=== PATIENT | female | born 1940 | race Caucasian/White ===

== ENCOUNTER 2017-10-13 16:08 | Emergency (ER) | payer OTHER ==
[2017-10-13 16:24] VITALS: BP 160/60; PULSE 56; TEMP 98.2; BMI 25.7
--- NOTE | 2017-10-13 16:43 | PDOC ---
History of Present Illness - General History Source: Patient, Old Records Exam Limitations: No Limitations - History of Present Illness Initial Comments: 10/13/17 16:57 The patient is a 77 year old female with a past medical history of hypertension and hyperlipidemia who presents to the ED with left ankle and foot pain for 3 hours. The patient states that she was walking around her bed when she tripped on the sheets and fell. She denies any loss of consciousness or hitting her head during the fall. The patient describes her ankle pain as constant associated with numbness and tingling. She notes that her pain is exacerbated by movement with no alleviating symptoms. The patient notes that she stopped taking her blood thinning medication 2 weeks ago on her primary doctors recommendation. She states that she was on plavix after her carotid artery surgery in May of 2017. She denies fever, chills, headache, shortness of breath, and dizziness. <John Patel - Last Filed: 10/13/17 17:00> - History of Present Illness Initial Comments: 10/13/17 17:01 Exam: Alert oriented well-developed well-nourished no acute distress cooperative Left ankle: Mild swelling over the anterior and lateral ligaments. No deformity. No point tenderness medial malleolus or fifth metatarsal. Tenderness is present over the lateral malleolus Pulses full. No distal sensory or motor deficits. No instability. No pain or tenderness of the knee, including the proximal fibula X-ray: Comminuted, nondisplaced fracture of the distal fibula. Medial and posterior malleoli intact. Good ankle mortise. Plan: Felton wrap applied. Instructions given. Rest ice and elevate. Orthopedic follow-up as directed. Patient adequately ambulatory with crutches, no significant pain or other distress, discharge with to follow-up as directed. 10/13/17 17:05 10/13/17 17:22 <Nguyễn Mortensen - Last Filed: 10/13/17 17:24> - General Chief Complaint: Injury Stated Complaint: LEFT ANKLE PAIN Time Seen by Provider: 10/13/17 16:32 Past History <John Patel - Last Filed: 10/13/17 17:00> - Past Medical History COPD: No HTN: Yes Hypercholesterolemia: Yes - Suicide/Smoking/Psychosocial Hx Smoking History: Never smoked Hx Alcohol Use: Yes (OCCASIONAL GLASS OF WINE) Drug/Substance Use Hx: No Substance Use Type: None <Nguyễn Mortensen - Last Filed: 10/13/17 17:24> - Past Medical History Allergies/Adverse Reactions: Allergies Allergy/AdvReac Type Severity Reaction Status Date / Time No Known Allergies Allergy Verified 10/13/17 16:10 Home Medications: Ambulatory Orders Amlodipine Besylate [Norvasc -] 5 mg PO DAILY 10/13/17 Aspirin [Aspirin EC] 81 mg PO DAILY 10/13/17 Atorvastatin Ca [Lipitor] 10 mg PO HS 10/13/17 Review of Systems - Review of Systems Able to Perform ROS?: Yes Comments:: 10/13/17 16:57 CONSTITUTIONAL: Absent: fever, no chills, no fatigue EYES: Absent: visual changes ENT: Absent: ear pain, no sore throat CARDIOVASCULAR: Absent: chest pain, no palpitations RESPIRATORY: Absent: cough, no SOB GI: Absent: abdominal pain, no nausea, no vomiting, no constipation, no diarrhea GENITOURINARY: Absent: dysuria, no frequency, no hematuria MUSCULOSKELETAL: (+) Left ankle pain. Left foot pain Absent: back pain, no arthralgia, no myalgia SKIN: Absent: rash 10/13/17 17:00 <John Patel - Last Filed: 10/13/17 17:00> *Physical Exam - Vital Signs Last Vital Signs Temp Pulse Resp BP Pulse Ox 98.2 F 56 L 16 160/60 98 10/13/17 16:09 10/13/17 16:09 10/13/17 16:09 10/13/17 16:09 10/13/17 16:09 - Physical Exam Comments: 10/13/17 16:58 GENERAL: Well-appearing, well-nourished. No apparent distress. HEENT: Normocephalic, atraumatic. PERRL, EOM intact. CARDIOVASCULAR: (+) Systolic ejection murmur. Regular rate and rhythm. PULMONARY: Clear to auscultation bilaterally. ABDOMEN: Soft, non-distended, non-tender. EXTREMITIES: (+) No bony deformity, swelling of left lateral foot, decreased range of motion secondary to pain. Normal ROM in all four extremities. No gross deformities. SKIN: Warm, dry. No rash NEUROLOGICAL: No focal neurological deficits. <John Patel - Last Filed: 10/13/17 17:00> - Vital Signs Last Vital Signs Temp Pulse Resp BP Pulse Ox 98.2 F 56 L 16 160/60 98 10/13/17 16:09 10/13/17 16:09 10/13/17 16:09 10/13/17 16:09 10/13/17 16:09 <Nguyễn Mortensen - Last Filed: 10/13/17 17:24> *DC/Admit/Observation/Transfer - Attestations Scribe Attestion: 10/13/17 16:58 Documentation prepared by John Patel, acting as medical videographer for Nguyễn Mortensen MD. <John Patel - Last Filed: 10/13/17 17:00> - Discharge Dispostion Admit: No <Nguyễn Mortensen - Last Filed: 10/13/17 17:24> Diagnosis at time of Disposition: Fracture of distal fibula Qualifiers: Encounter type: initial encounter Fracture type: closed Fracture morphology: torus Laterality: left Qualified Code(s): S82.822A - Torus fracture of lower end of left fibula, initial encounter for closed fracture - Discharge Dispostion Disposition: HOME Condition at time of disposition: Improved - Referrals Referrals: Juan Allen MD [Staff Physician] - 1 week - Patient Instructions Printed Discharge Instructions: DI for Ankle Fracture Additional Instructions: Rest, ice, elevate, Felton bandage as directed, with loosening periodically. Crutches with partial weight bearing until follow-up with orthopedist. See visual merchandising specialist for further treatment within 1 week. - Post Discharge Activity
== END 2017-10-13 17:30 | disposition home or self-care (01) ==
LOC: FER 16:08
DX: S82.822A Torus fracture of lower end of left fibula, initial encounter for closed fracture (principal); W18.39XA Other fall on same level, initial encounter; Y93.89 Activity, other specified; Y92.003 Bedroom of unspecified non-institutional (private) residence as the place of occurrence of the external cause; I10 Essential (primary) hypertension; E78.5 Hyperlipidemia, unspecified
CPT/HCPCS: 73610-TC-LT-FY; 99281-25

== ENCOUNTER 2019-02-26 12:19 | Emergency (ER) | payer OTHER | END 2019-02-26 13:08 | disposition home or self-care (01) | LOC: FER 12:19 ==

== ENCOUNTER 2021-02-04 17:53 | Emergency (ER) | payer OTHER ==
[2021-02-04 18:06] VITALS: BP 165/64; PULSE 69; TEMP 99.4; BMI 24.4
== END 2021-02-04 18:47 | disposition home or self-care (01) ==
LOC: FER 17:53
PROC: 2W3GX1Z Immobilization of Right Thumb using Splint (ICD-10-PCS; principal; 2021-02-04)
DX: S60.931A Unspecified superficial injury of right thumb, initial encounter (principal)
CPT/HCPCS: 73140-TC-RT-FY; 99283-25

== ENCOUNTER 2021-08-22 19:41 | Emergency (ER) | payer OTHER ==
[2021-08-22 19:56] VITALS: BP 138/49; PULSE 60; TEMP 99; BMI 23.4
== END 2021-08-22 21:48 | disposition home or self-care (01) ==
LOC: FER 19:41
DX: S82.832A Other fracture of upper and lower end of left fibula, initial encounter for closed fracture (principal)
CPT/HCPCS: 73610-TC-LT-FY; 99284-25

== ENCOUNTER → 2022-10-30 | Day surgery (SDC) | payer OTHER ==
[2022-10-28 18:35] VITALS: BMI 23.4
[~2022-10-30] MED LIST: BUPIVACAINE HCL/PF 0.25% (2.5MG/ML) 10 ML VIAL ONE; BUPIVACAINE HCL/PF 0.5% (5MG/ML) 10 ML VIAL IJ ONE; BUPIVACAINE HCL/PF 0.5% (5MG/ML) 10 ML VIAL ONE; IOHEXOL 180 MG/1 ML ML IJ ONE; LIDOCAINE HCL 1% PRESERVATIVE FREE - 30ML VIAL IJ ONE; LIDOCAINE HCL/PF 1% SDV 5ML VIAL ONE; TRIAMCINOLONE ACET 40MG/1ML VIAL IM ONE; TRIAMCINOLONE ACET 40MG/1ML VIAL ONE
[2022-10-30 18:34] VITALS: BP 123/54; PULSE 58; RESP 20; TEMP 97.3
== END | disposition home or self-care (01) ==
LOC: JASU-SURG 04:01
PROVIDERS: ATTEND Pain Medicine Pain Medicine
PROC: 3E0U3BZ Introduction of Anesthetic Agent into Joints, Percutaneous Approach (ICD-10-PCS; 2022-10-30)
PROC: 3E0U33Z Introduction of Anti-inflammatory into Joints, Percutaneous Approach (ICD-10-PCS; principal; 2022-10-30 15:30)
DX: M16.11 Unilateral primary osteoarthritis, right hip (principal)
CPT/HCPCS: 76000-TC-FY

== ENCOUNTER 2023-06-30 13:21 | Emergency (ER) | payer OTHER ==
[2023-06-30 13:28] VITALS: BP 148/58; PULSE 68; RESP 16; TEMP 98.1; BMI 23.8
[2023-06-30] MEDS ORDERED: ACETAMINOPHEN 500 MG TABLET (FP) PO ONE (13:50)
[2023-06-30] MEDS ORDERED: LIDOCAINE 5% TOPICAL PATCH TP ONE (13:51)
[2023-06-30] MEDS ORDERED: ACETAMINOPHEN 325 MG TABLET (FP) ONE (14:11)
[2023-06-30] MEDS ORDERED: LIDOCAINE 5% TOPICAL PATCH ONE (14:11)
[2023-06-30] MEDS ORDERED: KETOROLAC TROMETHAMINE 30 MG/1 ML VIAL IM ONE (15:17)
[2023-06-30] MEDS ORDERED: KETOROLAC TROMETHAMINE 30 MG/1 ML VIAL ONE (15:32)
[2023-06-30] MEDS ORDERED: LIDOCAINE PATCH REMOVAL MC ONE (22:00)
== END 2023-06-30 16:14 | disposition home or self-care (01) ==
LOC: FER 13:21
PROC: 3E0233Z Introduction of Anti-inflammatory into Muscle, Percutaneous Approach (ICD-10-PCS; principal; 2023-06-30)
DX: M54.2 Cervicalgia (principal); R51.9 Headache, unspecified; W10.9XXA Fall (on) (from) unspecified stairs and steps, initial encounter
CPT/HCPCS: 70450-TC; 72125-TC; 99284-25

== ENCOUNTER 2023-08-10 04:21 | Day surgery (SDC) | payer OTHER ==
[2023-08-09 08:44] VITALS: BMI 23.4
[2023-08-10] MEDS ORDERED: BUPIVACAINE HCL/PF 0.5% (5MG/ML) 10 ML VIAL IJ ONE (10:12)
[2023-08-10] MEDS ORDERED: ACETAMINOPHEN 500 MG TABLET (FP) PO PRN (11:02)
[2023-08-10 11:04] VITALS: BP 168/54; PULSE 55; RESP 16; TEMP 98
== END 2023-08-10 11:25 | disposition home or self-care (01) ==
LOC: JASU-SURG 04:21
PROVIDERS: ATTEND Pain Medicine Pain Medicine
PROC: 3E0T33Z Introduction of Anti-inflammatory into Peripheral Nerves and Plexi, Percutaneous Approach (ICD-10-PCS; 2023-08-10)
PROC: 3E0T3BZ Introduction of Anesthetic Agent into Peripheral Nerves and Plexi, Percutaneous Approach (ICD-10-PCS; principal; 2023-08-10 10:30)
DX: M47.812 Spondylosis without myelopathy or radiculopathy, cervical region (principal)
CPT/HCPCS: 76000-TC-FY

== ENCOUNTER 2023-10-08 20:39 | Emergency (ER) | payer OTHER ==
[2023-10-08 20:52] VITALS: BP 153/67; PULSE 54; RESP 18; TEMP 97.8; BMI 23.4
== END 2023-10-08 22:26 | disposition home or self-care (01) ==
LOC: FER 20:39
DX: S92.515A Nondisplaced fracture of proximal phalanx of left lesser toe(s), initial encounter for closed fracture (principal); W22.8XXA Striking against or struck by other objects, initial encounter
CPT/HCPCS: 73630-TC-LT; 99283-25

== ENCOUNTER 2024-03-03 18:38 | Emergency (ER) | payer OTHER ==
[2024-03-03 18:59] VITALS: BP 159/56; PULSE 56; RESP 16; TEMP 98.7; BMI 23.2
== END 2024-03-03 20:18 | disposition home or self-care (01) ==
LOC: FER 18:38
DX: S92.354A Nondisplaced fracture of fifth metatarsal bone, right foot, initial encounter for closed fracture (principal); X50.1XXA Overexertion from prolonged static or awkward postures, initial encounter
CPT/HCPCS: 73630-TC-RT-FY; 99283-25